=== PATIENT | male | born 1980 | race Native Hawaiian/Other Pacific Islander ===

== ENCOUNTER 2019-06-13 11:25 | Emergency (ER) | payer OTHER ==
[~2019-06-13] VITALS: Ht 172.7 cm; Wt 93.0 kg
[2019-06-13 13:41] LABS: PLATELET COUNT 236 K/uL (142-355)
[2019-06-13 13:44] LABS: POTASSIUM 4.1 mmol/L (3.6-5.2)
[2019-06-13 15:10] VITALS: BP 135/87; TEMP 98.9
== END 2019-06-13 15:10 | disposition home or self-care (01) ==
LOC: ED 11:25
PROVIDERS: Student in an Organized Health Care Education/Training Program
DX: R11.0 Nausea (principal); R53.83 Other fatigue
CPT/HCPCS: 36415; 80053; 81000; 83690; 83735; 85027; 87040; 87502; 96360; 96375; 99284; J1885; J2405